=== PATIENT | female | born 1985 | race Caucasian/White ===

== ENCOUNTER 2017-12-22 10:34 | Inpatient (IN) | payer BC ==
[~2017-12-22] VITALS: Ht 162.6 cm; Wt 63.5 kg
[2017-12-22 16:00] VITALS: BP 107/64
[2017-12-22] MEDS ORDERED: Norco 5mg/325mg tab ORAL PRN ×2 (16:06→16:07)
--- NOTE | 2017-12-22 16:36 | Diagnostic Imaging Report ---
Indication: Fell, tripped on glass, shattered glass injury to plantar surface of foot Technique: 3 views left foot Comparison: None Findings: Multiple polygonal foreign bodies, at least 6, are seen projected in the plantar surface soft tissues adjacent to the third metatarsal shaft. No definite underlying bony disruption is evident. No soft tissue gas. On 2 views, one of these fragments demonstrates attenuation characteristic of a metallic density, but this is not confirmed on the oblique view Impression: At least 6 foreign bodies, presumably glass fragments given stated clinical history, seen within the plantar surface of the midfoot, adjacent to the third metatarsal shaft. One of these may be metallic No definite bony destruction or abnormal soft tissue gas Patient's nurse notified of the findings at the time of interpretation
[2017-12-22] MEDS: cefTRIAXone 1 GM in D5W 55 ML IVPB SCH (17:24)
[2017-12-22 19:26] VITALS: BP 95/61
--- NOTE | 2017-12-22 20:06 | History & Physical ---
History and Physical History & Physicial Dictated for int Med Dr De Dios no. [id number] Grupo Perez MD Dec 22, 2017 20:05
[2017-12-23] VITALS (13 sets, daily range): BP systolic 98–130; BP diastolic 59–80
[2017-12-23 06:32] LABS: BASOPHILS % (AUTO) 1.3 % (0.0-2.0); EOSINOPHILS % (AUTO) 3.1 % (0.0-3.0); HEMATOCRIT 36.7 % (37.0-47.0); HEMOGLOBIN 12.4 G/DL (12.0-16.0); LYMPHOCYTES % (AUTO) 21.6 % (20.0-45.0); MEAN CORPUSCULAR VOLUME 94 FL (80-99); NEUTROPHILS % (AUTO) 64.9 % (45.0-75.0); PLATELET COUNT 202 K/UL (150-450); RED BLOOD COUNT 3.89 M/UL (4.20-5.40); RED CELL DISTRIBUTION WIDTH 10.9 % (11.6-14.8); WHITE BLOOD COUNT 7.5 K/UL (4.8-10.8)
[2017-12-23 06:50] LABS: ALANINE AMINOTRANSFERASE 16 U/L (12-78); ALBUMIN 3.6 G/DL (3.4-5.0); ALBUMIN/GLOBULIN RATIO 1.1 (1.0-2.7); ALKALINE PHOSPHATASE 24 U/L (46-116); ANION GAP 5 mmol/L (5-15); ASPARTATE AMINO TRANSFERASE 15 U/L (15-37); BILIRUBIN,TOTAL 0.5 MG/DL (0.2-1.0); BLOOD UREA NITROGEN 12 mg/dL (7-18); CALCIUM 8.7 MG/DL (8.5-10.1); CARBON DIOXIDE 30 MMOL/L (21-32); CHLORIDE 104 MMOL/L (98-107); CREATININE 0.7 MG/DL (0.55-1.30); PHOSPHORUS 3.9 MG/DL (2.5-4.9); POTASSIUM 4.2 MMOL/L (3.5-5.1); SODIUM 139 MMOL/L (136-145)
--- NOTE | 2017-12-23 07:54 | Consultation ---
Consult Note Assessment/Plan A/ Foreign body left foot P/ Plan for surgery today to remove FB's. Patient understands risks, benefits, and post op recovery. Wishes to proceed. Will order labs including preg test Awaiting OR for time today. Cont NPO Full note dictated Thank you Yefri Deal DPM Dec 23, 2017 07:54
--- NOTE | 2017-12-23 11:30 | Consultation ---
DATE OF CONSULTATION: 12/23/2017 CONSULTING PHYSICIAN: Yefri Nichols D.P.M. REQUESTING PHYSICIAN: Osmel De Dios M.D. REASON FOR CONSULTATION: Foreign body in the left foot. HISTORY OF PRESENT ILLNESS: The patient is a 32-year-old female, was admitted to [facility] on December 22, 2017 for foreign body. She states that Friday evening she was in the bathroom with her son. She is drinking a glass of water, she placed it down, and was concerned about her son status, jolted upwards and knocked the glass over and subsequently stepped on the broken shards. She sought emergent care the following day and was admitted due to retained foreign body and pain as well as deep laceration. The patient currently denies any pain, fevers, chills, nausea, vomiting. PAST MEDICAL HISTORY: None. PAST SURGICAL HISTORY: None. ALLERGIES: No known drug allergies. MEDICATIONS: None. FAMILY HISTORY: Noncontributory. SOCIAL HISTORY: The patient lives at home with her and her 3-year-old son. REVIEW OF SYSTEMS: HEENT: The patient denies any headaches, blurred vision, or ringing in the ears. CARDIORESPIRATORY: The patient denies any chest pain or shortness of breath. GENITOURINARY: The patient denies any urgency, frequency, burning upon urination, or hematuria. GASTROINTESTINAL: The patient denies any constipation, diarrhea, or blood in the stool. NEUROLOGIC: The patient admits to numbness in the left 3rd and 4th toes as residual part of the trauma. PHYSICAL EXAMINATION: VITAL SIGNS: Temperature is 97.9, pulse is 66, respiration rate is 15, blood pressure is 98/59, and saturating 99% on room air. EXTREMITIES: Lower extremity physical exam, vascular, palpable pedal pulses noted bilaterally. Feet are equally warm. There is no edema or cyanosis noted. Capillary filling time is instantaneous to all toes of bilateral feet. DERMATOLOGIC: There is a deep laceration noted at the central arch area of the left foot. No active bleeding is noted. There was hematoma noted in the wound. No foreign bodies are visible. No signs of active infection are noted. No pain upon palpation of the area, just sensitivity. MUSCULOSKELETAL: No gross deformities noted. NEUROLOGIC: Soft. Sensation is diminished in the left third toe. LABORATORY DATA: White blood cell count is 7.5, hemoglobin and hematocrit is 12.4 and 36.7, and platelet count is 202. Chemistry panel is completely unremarkable. X-rays taken on this admission show multiple shards of broken glass in the left foot. ASSESSMENT: Foreign bodies, left foot. Laceration left foot PLAN: 1. The patient was advised of her current condition and she understands and agrees to removal of foreign body surgery today. The patient advised of the risks, benefits, and possible complications, including infection, bleeding, possible necessity for further procedures. The patient understands recovery times including three weeks of nonweightbearing, postoperative dressing changes, and need for rest at home. 2. OR was contacted and the case is hanging for today after scheduled cases. 3. We will order test to assess for status. Thank you for the courtesy of this consultation, Dr. De Dios. Yefir Nichols D.P.M. DR: EMMANUEL JOB#: [id number] CC: JEFE
--- NOTE | 2017-12-23 14:30 | Consultation ---
History of Present Illness General Date patient seen: Dec 23, 2017 Present Illness HPI 32 year old femalw without any PMHx stepped on some broken glass at home and was taken to [facility]. She was found to have pieces of glass in her foot and transferred to [facility] for surgical evaluation. pt is asymptomatic now. was seen by Sheet Metal Work Furnace Installer and awaiting surgery now. Allergies: Coded Allergies: No Known Allergies (Unverified , 12/22/17) Patient History Healthcare decision maker Resuscitation status Full Code Advanced Directive on File Review of Systems All Other Systems: negative except mentioned in HPI Physical Exam General Appearance: WD/WN Lines, tubes and drains: peripheral, central line HEENT: normocephalic, anicteric Neck: non-tender Respiratory/Chest: chest wall non-tender, lungs clear Cardiovascular/Chest: normal peripheral pulses, normal rate Abdomen: normal bowel sounds Genitourinary/Rectal: normal genital exam Extremities: normal range of motion Neurologic: patternmaker metal II-XII grossly normal Last 24 Hour Vital Signs Date Time Temp Pulse Resp B/P (MAP) Pulse Ox O2 Delivery O2 Flow Rate FiO2 12/23/17 13:04 99.3 12/23/17 11:53 99.3 12/23/17 11:46 99.3 76 19 108/74 (85) 98 99.3 12/23/17 09:00 Room Air 12/23/17 08:26 98.4 77 18 118/80 (93) 97 98.4 12/23/17 08:00 98.4 77 18 118/80 (93) 97 98.4 12/23/17 04:00 97.9 66 15 98/59 (72) 99 97.9 12/23/17 00:11 97.7 68 16 103/68 (80) 99 97.7 12/22/17 21:00 Room Air 12/22/17 19:26 98.1 69 18 95/61 (72) 97 98.1 12/22/17 16:00 98.9 84 19 107/64 (78) 97 98.9 12/22/17 15:05 Room Air Intake and Output 12/22/17 12/23/17 19:00 07:00 Intake Total 455 ml Balance 455 ml Intake IV Total 55 ml Other 400 ml # Voids 1 # Bowel Movements 1 Laboratory Tests Test 8/21/18 05:20 12/23/17 08:00 White Blood Count 7.5 K/UL (4.8-10.8) Red Blood Count 3.89 M/UL (4.20-5.40) L Hemoglobin 12.4 G/DL (12.0-16.0) Hematocrit 36.7 % (37.0-47.0) L Mean Corpuscular Volume 94 FL (80-99) Mean Corpuscular Hemoglobin 31.8 PG (27.0-31.0) H Mean Corpuscular Hemoglobin Concent 33.7 G/DL (32.0-36.0) Red Cell Distribution Width 10.9 % (11.6-14.8) L Platelet Count 202 K/UL (150-450) Mean Platelet Volume 9.3 FL (6.5-10.1) Neutrophils (%) (Auto) 64.9 % (45.0-75.0) Lymphocytes (%) (Auto) 21.6 % (20.0-45.0) Monocytes (%) (Auto) 9.0 % (1.0-10.0) Eosinophils (%) (Auto) 3.1 % (0.0-3.0) H Basophils (%) (Auto) 1.3 % (0.0-2.0) Sodium Level 139 MMOL/L (136-145) Potassium Level 4.2 MMOL/L (3.5-5.1) Chloride Level 104 MMOL/L (98-107) Carbon Dioxide Level 30 MMOL/L (21-32) Anion Gap 5 mmol/L (5-15) Blood Urea Nitrogen 12 mg/dL (7-18) Creatinine 0.7 MG/DL (0.55-1.30) Estimat Glomerular Filtration Rate > 60 mL/min (>60) Glucose Level 104 MG/DL (74-106) Calcium Level 8.7 MG/DL (8.5-10.1) Phosphorus Level 3.9 MG/DL (2.5-4.9) Magnesium Level 1.9 MG/DL (1.8-2.4) Total Bilirubin 0.5 MG/DL (0.2-1.0) Aspartate Amino Transf (AST/SGOT) 15 U/L (15-37) Alanine Aminotransferase (ALT/SGPT) 16 U/L (12-78) Alkaline Phosphatase 24 U/L (46-116) L Total Protein 6.8 G/DL (6.4-8.2) Albumin 3.6 G/DL (3.4-5.0) Globulin 3.2 g/dL Albumin/Globulin Ratio 1.1 (1.0-2.7) Human Chorionic Gonadotropin, Qual Negative (NEGATIVE) Height (Feet): 5 Height (Inches): 4.00 Weight (Pounds): 140 Medications Current Medications Medications (Trade) Dose Ordered Sig/Veronika Route PRN Reason Start Time Stop Time Status Last Admin Dose Admin Acetaminophen (Tylenol) 650 mg Q6H PRN ORAL Mild Pain/Temp > 100.5 12/22/17 16:06 01/21/18 16:05 12/23/17 11:53 Acetaminophen/ Hydrocodone Bitart ([place] 5/325) 1 tab Q6H PRN ORAL For severe pain 12/22/17 16:07 12/29/17 16:05 Ceftriaxone Sodium 1 gm/ Dextrose 55 ml @ 110 mls/hr Q24H IVPB 12/22/17 17:00 12/29/17 16:59 12/22/17 17:24 Assessment/Plan Problem List: (1) Foot laceration ICD Codes: S91.319A - Laceration without foreign body, unspecified foot, initial encounter SNOMED: [id number] Assessment/Plan Podiatry f/u wound care pain management symptomatic treatment. Chen Doll MD Dec 23, 2017 14:30
[2017-12-23] MEDS ORDERED: Hydromorphone 0.5mg/0.5ml inj IVP PRN (14:45)
[2017-12-23] MEDS: cefTRIAXone 1 GM in D5W 55 ML IVPB SCH (17:12)
--- NOTE | 2017-12-23 19:13 | Internal Med Progress Note ---
Subjective Date of Service: Dec 23, 2017 Physician Name Grupo Perez Attending Physician Osmel De Dios MD Current Medications Medications (Trade) Dose Ordered Sig/Veronika Route PRN Reason Start Time Stop Time Status Last Admin Dose Admin Acetaminophen (Tylenol) 650 mg Q6H PRN ORAL Mild Pain/Temp > 100.5 12/22/17 16:06 01/21/18 16:05 12/23/17 11:53 Acetaminophen/ Hydrocodone Bitart ([place] 5/325) 1 tab Q6H PRN ORAL For severe pain 12/22/17 16:07 12/29/17 16:05 Ceftriaxone Sodium 1 gm/ Dextrose 55 ml @ 110 mls/hr Q24H IVPB 12/22/17 17:00 12/29/17 16:59 12/23/17 17:12 Hydromorphone HCl (Dilaudid) 0.5 mg Q4H PRN IVP For Pain 9-10 12/23/17 14:45 12/30/17 14:44 Temazepam (Restoril) 15 mg HSPRN PRN ORAL Insomnia 12/23/17 14:45 12/30/17 14:44 Allergies: Coded Allergies: No Known Allergies (Unverified , 12/22/17) ROS Limited/Unobtainable: No Constitutional: Reports: no symptoms HEENT: Reports: no symptoms Cardiovascular: Reports: no symptoms Respiratory: Reports: no symptoms Gastrointestinal/Abdominal: Reports: no symptoms Genitourinary: Reports: no symptoms Subjective 32 YO F admitted with laceration and glass shards in left foot. Await surgical extraction and laceration repair under anesthesia today. Cover for Int Med Dr De Dios Objective Last Vital Signs Date Time Temp Pulse Resp B/P (MAP) Pulse Ox O2 Delivery O2 Flow Rate FiO2 12/23/17 16:03 98.9 91 19 121/77 (92) 99 98.9 12/23/17 09:00 Room Air General Appearance: WD/WN, no apparent distress, alert EENT: PERRL/EOMI, normal ENT inspection Neck: non-tender, normal alignment, supple, normal inspection Cardiovascular: normal peripheral pulses, normal rate, regular rhythm, no gallop/murmur, no JVD Respiratory/Chest: chest wall non-tender, lungs clear, normal breath sounds, no respiratory distress, no accessory muscle use Abdomen: normal bowel sounds, non tender, soft, no organomegaly, no mass Extremities: normal range of motion, non-tender Neurologic: retail business development manager II-XII grossly normal, no motor/sensory deficits Skin: normal pigmentation, warm/dry Laboratory Tests Test 12/23/17 05:20 12/23/17 08:00 White Blood Count 7.5 K/UL (4.8-10.8) Red Blood Count 3.89 M/UL (4.20-5.40) L Hemoglobin 12.4 G/DL (12.0-16.0) Hematocrit 36.7 % (37.0-47.0) L Mean Corpuscular Volume 94 FL (80-99) Mean Corpuscular Hemoglobin 31.8 PG (27.0-31.0) H Mean Corpuscular Hemoglobin Concent 33.7 G/DL (32.0-36.0) Red Cell Distribution Width 10.9 % (11.6-14.8) L Platelet Count 202 K/UL (150-450) Mean Platelet Volume 9.3 FL (6.5-10.1) Neutrophils (%) (Auto) 64.9 % (45.0-75.0) Lymphocytes (%) (Auto) 21.6 % (20.0-45.0) Monocytes (%) (Auto) 9.0 % (1.0-10.0) Eosinophils (%) (Auto) 3.1 % (0.0-3.0) H Basophils (%) (Auto) 1.3 % (0.0-2.0) Sodium Level 139 MMOL/L (136-145) Potassium Level 4.2 MMOL/L (3.5-5.1) Chloride Level 104 MMOL/L (98-107) Carbon Dioxide Level 30 MMOL/L (21-32) Anion Gap 5 mmol/L (5-15) Blood Urea Nitrogen 12 mg/dL (7-18) Creatinine 0.7 MG/DL (0.55-1.30) Estimat Glomerular Filtration Rate > 60 mL/min (>60) Glucose Level 104 MG/DL (74-106) Calcium Level 8.7 MG/DL (8.5-10.1) Phosphorus Level 3.9 MG/DL (2.5-4.9) Magnesium Level 1.9 MG/DL (1.8-2.4) Total Bilirubin 0.5 MG/DL (0.2-1.0) Aspartate Amino Transf (AST/SGOT) 15 U/L (15-37) Alanine Aminotransferase (ALT/SGPT) 16 U/L (12-78) Alkaline Phosphatase 24 U/L (46-116) L Total Protein 6.8 G/DL (6.4-8.2) Albumin 3.6 G/DL (3.4-5.0) Globulin 3.2 g/dL Albumin/Globulin Ratio 1.1 (1.0-2.7) Human Chorionic Gonadotropin, Qual Negative (NEGATIVE) Intake and Output 12/22/17 12/23/17 19:00 07:00 Intake Total 455 ml Balance 455 ml Intake IV Total 55 ml Other 400 ml # Voids 1 # Bowel Movements 1 Assessment/Plan Problem List: (1) Laceration of left foot Assessment & Plan: Surgical repair today by podiatry - see note. (2) Foreign body in left foot Assessment & Plan: Await surgical removal under anesthesia today. See podiatry note. Status: not improved Grupo Perez MD Dec 23, 2017 19:13
--- NOTE | 2017-12-23 20:04 | Pre-Procedure Note/Attestation ---
Pre-Procedure Note/Attestation Complete Prior to Procedure Planned Procedure: left Procedure Narrative: Removal of foreign bodies left foot Indications for Procedure Pre-Operative Diagnosis: Foreign bodies left foot Attestation I attest that I discussed the nature of the procedure; its benefits; risks and complications; and alternatives (and the risks and benefits of such alternatives ), prior to the procedure, with the patient (or the patient's legal contact representative). I attest that, if there was a reasonable possibility of needing a blood transfusion, the patient (or the patient's legal contact representative) was given the [facility] standardized written summary, pursuant to the [place] Blood Safety Act ([place] Health and Safety Code # 1645, as amended). I attest that I re-evaluated the patient just prior to the surgery and that there has been no change in the patient's H&P, except as documented below: Yefri Nichols DPM Dec 23, 2017 20:04
[2017-12-23] MEDS ORDERED: Bupivacaine 0.5% Inj 30 ml vial INJ ONE (20:13)
[2017-12-23] MEDS ORDERED: Bacitracin Oint 15gm Tube TOPIC ONE (20:13)
[2017-12-23] MEDS ORDERED: Lidocaine 1% 10mg/ml/Epi 0.005mg/ml 30ml vial INJ ONE (20:13)
[2017-12-23] MEDS ORDERED: Bacitracin 50000 Units Vial ONE (20:14)
[2017-12-23] MEDS ORDERED: NeoSporin Gu Irrig 1ml Amp IRRIG ONE (20:14)
[2017-12-23] MEDS ORDERED: fentaNYL 100 mcg/2 mL IV ONE (20:36)
[2017-12-23] MEDS ORDERED: Midazolam 2mg/2ml Inj ONE (20:36)
[2017-12-23] MEDS ORDERED: Propofol 200mg/20ml IV ONE (20:38)
[2017-12-23] MEDS ORDERED: LR 1000ml 1,000 ML IVLG SCH (21:13)
--- NOTE | 2017-12-23 21:13 | Anethesia Preoperative Eval ---
Anesthesia Pre-op PMH/ROS General Date of Evaluation: Dec 23, 2017 Time of Evaluation: 20:32 Anesthesiologist: Serena ASA Score: ASA 2 Mallampati Score Class I : Soft palate, uvula, fauces, pillars visible Class II: Soft palate, uvula, fauces visible Class III: Soft palate, base of uvula visible Class IV: Only hard plate visible Mallampati Classification: Class II Surgeon: Jerrod Diagnosis: L foot wound Surgical Procedure: Revision of wound with removal of foreighn bodies Anesthesia History: none Family History: no anesthesia problems Allergies: Coded Allergies: No Known Allergies (Unverified , 12/22/17) Past Medical History Cardiovascular: Denies: HTN, CAD, [place], valve dz, arrhythmia, other Pulmonary: Denies: asthma, COPD, ROB, other Gastrointestinal/Genitourinary: Denies: GERD, CRI, ESRD, other Neurologic/Psychiatric: Denies: dementia, CVA, depression/anxiety, TIA, other Endocrine: Denies: DM, hypothyroidism, steroids, other HEENT: Denies: cataract (L), cataract (R), glaucoma, ALGAACIQ (L), ALGAACIQ (R), other Hematology/Immune: Denies: anemia, DVT, bleeding disorder, other Musculoskeletal/Integumentary: Denies: OA, RA, DJD, DDD, edema, other PMH Narrative: as above . Admitted for severe laceration of L foot PSxH Narrative: none Anesthesia Pre-op Phys. Exam Physician Exam Last Vital Signs Date Time Temp Pulse Resp B/P (MAP) Pulse Ox O2 Delivery O2 Flow Rate FiO2 12/23/17 20:00 99.1 82 16 130/65 (86) 98 99.1 12/23/17 09:00 Room Air Constitutional: NAD Neurologic: CN 2-12 intact Cardiovascular: RRR, no M/R/G Respiratory: CTA Gastrointestinal: S/NT/ND Airway Exam Mallampati Score: Class II MO: full Neck: flexible ROM: full Teeth: intact Dentures: no upper, no lower Anesthesia Pre-op A/P Labs Hematology Test 12/23/17 05:20 White Blood Count 7.5 K/UL (4.8-10.8) Red Blood Count 3.89 M/UL (4.20-5.40) L Hemoglobin 12.4 G/DL (12.0-16.0) Hematocrit 36.7 % (37.0-47.0) L Mean Corpuscular Volume 94 FL (80-99) Mean Corpuscular Hemoglobin 31.8 PG (27.0-31.0) H Mean Corpuscular Hemoglobin Concent 33.7 G/DL (32.0-36.0) Red Cell Distribution Width 10.9 % (11.6-14.8) L Platelet Count 202 K/UL (150-450) Mean Platelet Volume 9.3 FL (6.5-10.1) Neutrophils (%) (Auto) 64.9 % (45.0-75.0) Lymphocytes (%) (Auto) 21.6 % (20.0-45.0) Monocytes (%) (Auto) 9.0 % (1.0-10.0) Eosinophils (%) (Auto) 3.1 % (0.0-3.0) H Basophils (%) (Auto) 1.3 % (0.0-2.0) Chemistry Test 12/23/17 05:20 12/23/17 08:00 Sodium Level 139 MMOL/L (136-145) Potassium Level 4.2 MMOL/L (3.5-5.1) Chloride Level 104 MMOL/L (98-107) Carbon Dioxide Level 30 MMOL/L (21-32) Anion Gap 5 mmol/L (5-15) Blood Urea Nitrogen 12 mg/dL (7-18) Creatinine 0.7 MG/DL (0.55-1.30) Estimat Glomerular Filtration Rate > 60 mL/min (>60) Glucose Level 104 MG/DL (74-106) Calcium Level 8.7 MG/DL (8.5-10.1) Phosphorus Level 3.9 MG/DL (2.5-4.9) Magnesium Level 1.9 MG/DL (1.8-2.4) Total Bilirubin 0.5 MG/DL (0.2-1.0) Aspartate Amino Transf (AST/SGOT) 15 U/L (15-37) Alanine Aminotransferase (ALT/SGPT) 16 U/L (12-78) Alkaline Phosphatase 24 U/L (46-116) L Total Protein 6.8 G/DL (6.4-8.2) Albumin 3.6 G/DL (3.4-5.0) Globulin 3.2 g/dL Albumin/Globulin Ratio 1.1 (1.0-2.7) Human Chorionic Gonadotropin, Qual Negative (NEGATIVE) Serum Test Test 12/23/17 08:00 Human Chorionic Gonadotropin, Qual Negative (NEGATIVE) Risk Assessment & Plan Assessment: asa 2 Plan: MAC Status Change Before Surgery: No Pre-Antibiotics Drug: asn scheduled David Lyons MD Dec 23, 2017 21:13
[2017-12-23] MEDS ORDERED: Meperidine 50mg/ml Inj(FOR RIGORS ONLY) IV PRN (21:15)
[2017-12-23] MEDS ORDERED: DiphenhydrAMINE 50mg/ml Inj IVP PRN (21:15)
[2017-12-23] MEDS ORDERED: Ketorolac 30mg Inj IV PRN (21:15)
[2017-12-23] MEDS ORDERED: Betadine 4oz Bottle TOPIC ONE (22:09)
--- NOTE | 2017-12-23 22:21 | Brief Operative Note ---
Immediate Post Operative Note Operative Note Pre-op Diagnosis: Foreign bodies left foot Procedure: Removal of foreign bodies left foot Repair of laceration left foot Post-op Diagnosis: same as pre-op Surgeon: Yefri Nichols DPM Riverboat Captain: none Additional Surgeons: none Anesthesiologist: Dr Lyons Anesthesia: local, moderate sedation Specimen: yes - several pieces of glass Complications: none Condition: stable Fluids: per anesthesia Estimated Blood Loss: minimal - 10 cc Drains: none Tourniquet time: 60 - min Implant(s) used?: No Yefri Nichols DPM Dec 23, 2017 22:21
--- NOTE | 2017-12-23 22:25 | Immediate Post-Op Evaluation ---
Immediate Post-Op Evalulation Immediate Post-Op Evalulation Procedure: Revision of L foot wound with removal of foreign bodies Date of Evaluation: Dec 23, 2017 Time of Evaluation: 22:23 IV Fluids: 600 Blood Products: none Estimated Blood Loss: min Urinary Output: none Blood Pressure Systolic: 109 Blood Pressure Diastolic: 67 Pulse Rate: 85 Respiratory Rate: 20 O2 Sat by Pulse Oximetry: 99 Temperature (Fahrenheit): 98.2 Pain Score (1-10): 2 Nausea: No Vomiting: No Complications none Patient Status: awake, patent, none Hydration Status: adequate David Lyons MD Dec 23, 2017 22:25
[2017-12-24] VITALS: BP 108/61
--- NOTE | 2017-12-24 03:32 | History and Physical Report ---
DATE OF ADMISSION: 12/22/2017 CHIEF COMPLAINT: The patient is a 32-year-old white female who presents with chief complaint of laceration and foreign body of the left foot. HISTORY OF PRESENT ILLNESS: The patient was at home with her son in the bathroom. A glass fell and shattered on the floor. The patient has stepped on the shattered glass. The patient presented to [place] emergency room. The glass shard was too deep to remove without anesthesia. The patient is admitted with chief complaint of laceration of the left foot as well as foreign object in the left foot. PAST MEDICAL HISTORY: Noncontributory. PAST SURGICAL HISTORY: None. CURRENT MEDICATIONS: None. ALLERGIES: No known drug allergies. SOCIAL HISTORY: The patient is and lives at home with her and son. The patient denies tobacco or alcohol use. REVIEW OF SYSTEMS: CONSTITUTIONAL: The patient denies weight loss or weight gain. The patient denies fever or chills. HEENT: The patient denies ear or throat pain. The patient denies headache. CARDIOVASCULAR: The patient denies palpitations or chest pain. CHEST: The patient denies wheeze or shortness of breath. ABDOMEN: The patient denies nausea, vomiting, diarrhea, or constipation. GENITOURINARY: The patient denies dysuria or increased frequency of urination. NEUROMUSCULAR: The patient denies seizures or generalized weakness. PHYSICAL EXAMINATION: GENERAL: The patient is a well-developed and well-nourished white female, in no apparent distress. VITAL SIGNS: Temperature 98.4 degrees, respirations 18, pulse 77, and blood pressure 118/80. HEENT: Eyes, pupils equal and responsive to light and accommodation. Extraocular movements are intact. NECK: Supple without lymphadenopathy. CHEST: Lungs are clear to auscultation bilaterally without wheezes or rales. CARDIOVASCULAR: Regular rate. S1 and S2 are normal without murmurs, rubs, or gallops. ABDOMEN: Soft, nontender, and nondistended. Positive bowel sounds. No evidence of hepatosplenomegaly. Currently, no rebound or guarding noted. EXTREMITIES: Negative for clubbing, cyanosis, or edema. RECTAL: Refused. GENITAL: Refused. NEUROLOGIC: Cranial nerves II through XII are grossly intact without focal deficits. Motor strength is 5/5 bilaterally. Deep tendon reflexes are 2+, plantar. Of note, the left foot is bandaged, and I am unable to examine the wound. LABORATORY AND DIAGNOSTIC DATA: WBC 7.5, hemoglobin 12.4, hematocrit 36.7, and platelets 202,000. Sodium 139, potassium 4.2, chloride 104, CO2 30, BUN 12, creatinine 0.7 and glucose 104. An x-ray of the left foot showed 6 foreign bodies adjacent to the third metatarsal shaft. ASSESSMENT: This is a 32-year-old white female: 1. Laceration of the left foot. 2. Foreign object in the left foot. TREATMENT: A Podiatry consultation has been obtained by Dr. Nichols. The patient may require surgical removal of the foreign body of the left foot. We will follow recommendations of Podiatry. Grupo Perez M.D. DR: TY JOB#: [id number] CC:
[2017-12-24 04:00] VITALS: BP 101/66
--- NOTE | 2017-12-24 07:32 | Operative Note - Dictated ---
DATE OF OPERATION: 12/23/2017 SURGEON: Yefri Nichols DPM. DOUGH MIXER OPERATOR SURGEON: None. ANESTHESIOLOGIST: David Lyons M.D. TYPE OF ANESTHESIA: Sedation with approximately 10 mL of 0.5% plain Marcaine and an ankle block. PREOPERATIVE DIAGNOSES: 1. Foreign body, left foot. 2. Laceration, left foot. POSTOPERATIVE DIAGNOSES: 1. Foreign body, left foot. 2. Laceration, left foot. PROCEDURE PERFORMED: 1. Removal of foreign bodies, left foot. 2. Repair of laceration approximately 5 cm in length. COMPLICATIONS: None. ESTIMATED BLOOD LOSS: 10 mL. ANTIBIOTICS: Rocephin given on the floor. DESCRIPTION OF PROCEDURE: The patient was transported to the operating room and placed on the operating table in supine position. Time-out was taken. Anesthesiologist then began sedation. Left ankle was blocked utilizing approximately 10 mL of 0.5% plain Marcaine and an ankle block. Padding was applied to the left ankle and pneumatic ankle tourniquet was placed over it. Left foot was scrubbed, prepped, and draped in usual aseptic manner. Left foot was elevated to exsanguinate the foot. Tourniquet was inflated to a pressure of 225 mmHg. After anesthesia check, exploration of the lacerated wound was performed under fluoroscopy guidance. Approximately, 6 pieces of glass were extracted. Final fluoroscopy indicated no fragment remnants in the left foot. Wound was copiously flushed. Deep musculature was coapted utilizing 3-0 Vicryl, subcutaneous with 3-0 Vicryl, and skin with 2-0 nylon stitch. Compressive dressings were applied. The tourniquet was deflated at approximately 63 minutes and immediate hyperemia was noted through toes #1 through #5 of the left foot. The patient tolerated the procedure and anesthesia well, and was transferred to recovery room in stable condition. The patient will return back to the floor with orders to resume diet and preoperative medications. Dilaudid and [place] have been previously ordered and will be resumed for postoperative pain management. Orders for reinforcement of dressings as needed, nonweightbearing of left foot, also to provide crutches to the patient to allow for nonweightbearing, and PT to gait-train with crutches. We will follow this patient postoperatively. Yefri Nichols D.P.M. DR: Monik JOB#: [id number] CC:
[2017-12-24 08:00] VITALS: BP 107/69
--- NOTE | 2017-12-24 08:16 | 48 Hour Post Anesthesia Eval ---
Post Anesthesia Evaluation Procedure: Revision of L foot wound with removal of foreign bodies Date of Evaluation: Dec 24, 2017 Time of Evaluation: 08:15 Blood Pressure Systolic: 104 0: 56 Pulse Rate: 68 Respiratory Rate: 20 Temperature (Fahrenheit): 97.6 O2 Sat by Pulse Oximetry: 98 Airway: patent Nausea: No Vomiting: No Pain Intensity: 2 Hydration Status: adequate Cardiopulmonary Status: stable Mental Status/LOC: patient returned to baseline Follow-up Care/Observations: n/a Post-Anesthesia Complications: none Follow-up care needed: ready to discharge David Lyons MD Dec 24, 2017 08:16
[2017-12-24 08:36] LABS: BASOPHILS % (AUTO) 1.2 % (0.0-2.0); EOSINOPHILS % (AUTO) 3.8 % (0.0-3.0); HEMOGLOBIN 12.7 G/DL (12.0-16.0); LYMPHOCYTES % (AUTO) 34.5 % (20.0-45.0); MEAN CORPUSCULAR VOLUME 93 FL (80-99); MONOCYTES % (AUTO) 7.6 % (1.0-10.0); NEUTROPHILS % (AUTO) 52.8 % (45.0-75.0); PLATELET COUNT 222 K/UL (150-450); RED CELL DISTRIBUTION WIDTH 10.5 % (11.6-14.8); WHITE BLOOD COUNT 6.7 K/UL (4.8-10.8)
[2017-12-24 08:57] LABS: ALANINE AMINOTRANSFERASE 17 U/L (12-78); ALBUMIN 3.7 G/DL (3.4-5.0); ALKALINE PHOSPHATASE 28 U/L (46-116); ANION GAP 10 mmol/L (5-15); ASPARTATE AMINO TRANSFERASE 14 U/L (15-37); BILIRUBIN,TOTAL 0.4 MG/DL (0.2-1.0); BLOOD UREA NITROGEN 12 mg/dL (7-18); CARBON DIOXIDE 26 MMOL/L (21-32); CHLORIDE 103 MMOL/L (98-107); CREATININE 0.6 MG/DL (0.55-1.30); PHOSPHORUS 4.2 MG/DL (2.5-4.9); POTASSIUM 3.9 MMOL/L (3.5-5.1); SODIUM 139 MMOL/L (136-145)
[2017-12-24] MEDS ORDERED: Norco 5mg/325mg tab ORAL SCH (09:15)
--- NOTE | 2017-12-24 09:36 | Internal Med Progress Note ---
Subjective Date of Service: Dec 24, 2017 Physician Name Grupo Perez Attending Physician Osmel De Dios MD Current Medications Medications (Trade) Dose Ordered Sig/Veronika Route PRN Reason Start Time Stop Time Status Last Admin Dose Admin Acetaminophen (Tylenol) 650 mg Q6H PRN ORAL Mild Pain/Temp > 100.5 12/22/17 16:06 01/21/18 16:05 12/23/17 11:53 Acetaminophen/ Hydrocodone Bitart ([place] 5/325) 1 tab ONCE ORAL 12/24/17 09:15 12/24/17 10:15 12/24/17 09:31 Acetaminophen/ Hydrocodone Bitart ([place] 5/325) 1 tab Q6H PRN ORAL For severe pain 12/22/17 16:07 12/29/17 16:05 12/24/17 04:40 Ceftriaxone Sodium 1 gm/ Dextrose 55 ml @ 110 mls/hr Q24H IVPB 12/22/17 17:00 12/29/17 16:59 12/23/17 17:12 Hydromorphone HCl (Dilaudid) 0.5 mg Q4H PRN IVP For Pain 9-10 12/23/17 14:45 12/30/17 14:44 Temazepam (Restoril) 15 mg HSPRN PRN ORAL Insomnia 12/23/17 14:45 12/30/17 14:44 Allergies: Coded Allergies: No Known Allergies (Unverified , 12/22/17) ROS Limited/Unobtainable: No Subjective 32 YO F admitted with laceration and glass shards in left foot. S/P surgical extraction and laceration repair under anesthesia 12/23/17. Cover for Int Med Dr De Dios Objective Last Vital Signs Date Time Temp Pulse Resp B/P (MAP) Pulse Ox O2 Delivery O2 Flow Rate FiO2 12/24/17 08:16 207.7 68 20 98 12/24/17 08:00 107/69 (82) 12/23/17 22:54 Room Air Laboratory Tests Test 12/24/17 08:00 White Blood Count 6.7 K/UL (4.8-10.8) Red Blood Count 4.00 M/UL (4.20-5.40) L Hemoglobin 12.7 G/DL (12.0-16.0) Hematocrit 37.0 % (37.0-47.0) Mean Corpuscular Volume 93 FL (80-99) Mean Corpuscular Hemoglobin 31.8 PG (27.0-31.0) H Mean Corpuscular Hemoglobin Concent 34.4 G/DL (32.0-36.0) Red Cell Distribution Width 10.5 % (11.6-14.8) L Platelet Count 222 K/UL (150-450) Mean Platelet Volume 9.0 FL (6.5-10.1) Neutrophils (%) (Auto) 52.8 % (45.0-75.0) Lymphocytes (%) (Auto) 34.5 % (20.0-45.0) Monocytes (%) (Auto) 7.6 % (1.0-10.0) Eosinophils (%) (Auto) 3.8 % (0.0-3.0) H Basophils (%) (Auto) 1.2 % (0.0-2.0) Erythrocyte Sedimentation Rate Pending Sodium Level 139 MMOL/L (136-145) Potassium Level 3.9 MMOL/L (3.5-5.1) Chloride Level 103 MMOL/L (98-107) Carbon Dioxide Level 26 MMOL/L (21-32) Anion Gap 10 mmol/L (5-15) Blood Urea Nitrogen 12 mg/dL (7-18) Creatinine 0.6 MG/DL (0.55-1.30) Estimat Glomerular Filtration Rate > 60 mL/min (>60) Glucose Level 92 MG/DL (74-106) Calcium Level 9.0 MG/DL (8.5-10.1) Phosphorus Level 4.2 MG/DL (2.5-4.9) Magnesium Level 2.0 MG/DL (1.8-2.4) Total Bilirubin 0.4 MG/DL (0.2-1.0) Aspartate Amino Transf (AST/SGOT) 14 U/L (15-37) L Alanine Aminotransferase (ALT/SGPT) 17 U/L (12-78) Alkaline Phosphatase 28 U/L (46-116) L C-Reactive Protein, Quantitative 1.4 mg/dL (0.00-0.90) H Total Protein 7.3 G/DL (6.4-8.2) Albumin 3.7 G/DL (3.4-5.0) Globulin 3.6 g/dL Albumin/Globulin Ratio 1.0 (1.0-2.7) Intake and Output 12/23/17 12/24/17 19:00 07:00 Intake Total 530 ml Output Total 10 ml Balance 520 ml Intake Oral 480 ml IV Total 50 ml Output Estimated Blood Loss 10 ml # Voids 6 2 # Bowel Movements 1 Objective General Appearance: WD/WN, no apparent distress, alert EENT: PERRL/EOMI, normal ENT inspection Neck: non-tender, normal alignment, supple, normal inspection Cardiovascular: normal peripheral pulses, normal rate, regular rhythm, no gallop/murmur, no JVD Respiratory/Chest: chest wall non-tender, lungs clear, normal breath sounds, no respiratory distress, no accessory muscle use Abdomen: normal bowel sounds, non tender, soft, no organomegaly, no mass Extremities: left foot dressing clean and dry; normal range of motion, non- tender Neurologic: manager msw II-XII grossly normal, no motor/sensory deficits Skin: normal pigmentation, warm/dry Assessment/Plan Problem List: (1) Laceration of left foot Assessment & Plan: s/P Surgical repair 12/23/17 by podiatry - see note. (2) Foreign body in left foot Assessment & Plan: S/P surgical removal 6 glass fragments under anesthesia 12/23. See podiatry note. Status: progressing Assessment/Plan Discharge planning Grupo Perez MD Dec 24, 2017 09:36
--- NOTE | 2017-12-24 11:44 | Diagnostic Imaging Report ---
Indication: Pain, foreign bodies, intraoperative imaging Technique: Intraoperative images Comparison: 12/22/2017 Findings: Intraoperative images are less clear than preoperative radiographs, show apparent removal of previously demonstrated foreign bodies. Impression: Intraoperative imaging, as described
[2017-12-24 12:00] VITALS: BP 116/79
--- NOTE | 2017-12-24 12:02 | Pulmonology Progress Note ---
Assessment/Plan Problems: (1) Foot laceration (2) Foreign body in left foot Assessment/Plan post op care f/u by podiatry symptomatic treatment Subjective ROS Limited/Unobtainable: No Constitutional: Reports: no symptoms HEENT: Repors: no symptoms Respiratory: Reports: no symptoms Allergies: Coded Allergies: No Known Allergies (Unverified , 12/22/17) Objective Last 24 Hour Vital Signs Date Time Temp Pulse Resp B/P (MAP) Pulse Ox O2 Delivery O2 Flow Rate FiO2 12/24/17 11:12 97.6 12/24/17 09:00 Room Air 12/24/17 08:16 207.7 68 20 98 12/24/17 08:00 98.7 73 20 107/69 (82) 97 98.7 12/24/17 04:00 98.8 68 19 101/66 (78) 99 98.8 12/24/17 00:00 98.6 64 18 108/61 (77) 99 98.6 12/23/17 22:54 61 15 100/62 98 Room Air 12/23/17 22:46 97.6 62 18 112/69 99 Room Air 97.6 12/23/17 22:35 60 14 99/68 100 Room Air 12/23/17 22:30 Room Air 12/23/17 22:30 63 15 109/67 99 Room Air 12/23/17 22:25 208.8 85 20 99 12/23/17 22:20 63 15 109/67 99 Room Air 12/23/17 22:13 98.2 69 20 112/69 98 Room Air 98.2 12/23/17 20:00 99.1 82 16 130/65 (86) 98 99.1 12/23/17 16:03 98.9 91 19 121/77 (92) 99 98.9 12/23/17 13:04 99.3 Intake and Output 12/23/17 12/24/17 19:00 07:00 Intake Total 530 ml Output Total 10 ml Balance 520 ml Intake Oral 480 ml IV Total 50 ml Output Estimated Blood Loss 10 ml # Voids 6 2 # Bowel Movements 1 General Appearance: WD/WN HEENT: normocephalic, anicteric Respiratory/Chest: chest wall non-tender, lungs clear Breasts: no masses Cardiovascular: normal peripheral pulses Abdomen: soft, non tender, no organomegaly Genitourinary: normal external genitalia Skin: no rash Laboratory Tests 12/24/17 08:00: White Blood Count 6.7, Red Blood Count 4.00L, Hemoglobin 12.7, Hematocrit 37.0, Mean Corpuscular Volume 93, Mean Corpuscular Hemoglobin 31.8H, Mean Corpuscular Hemoglobin Concent 34.4, Red Cell Distribution Width 10.5L, Platelet Count 222, Mean Platelet Volume 9.0, Neutrophils (%) (Auto) 52.8, Lymphocytes (%) (Auto) 34.5, Monocytes (%) (Auto) 7.6, Eosinophils (%) (Auto) 3.8H, Basophils (%) (Auto ) 1.2, Erythrocyte Sedimentation Rate 30H, Sodium Level 139, Potassium Level 3.9 , Chloride Level 103, Carbon Dioxide Level 26, Anion Gap 10, Blood Urea Nitrogen 12, Creatinine 0.6, Estimat Glomerular Filtration Rate > 60, Glucose Level 92, Calcium Level 9.0, Phosphorus Level 4.2, Magnesium Level 2.0, Total Bilirubin 0.4, Aspartate Amino Transf (AST/SGOT) 14L, Alanine Aminotransferase ( ALT/SGPT) 17, Alkaline Phosphatase 28L, C-Reactive Protein, Quantitative 1.4H, Total Protein 7.3, Albumin 3.7, Globulin 3.6, Albumin/Globulin Ratio 1.0 Current Medications Medications (Trade) Dose Ordered Sig/Veronika Route PRN Reason Start Time Stop Time Status Last Admin Dose Admin Acetaminophen (Tylenol) 650 mg Q6H PRN ORAL Mild Pain/Temp > 100.5 12/22/17 16:06 01/21/18 16:05 12/23/17 11:53 Acetaminophen/ Hydrocodone Bitart ([place] 5/325) 1 tab Q6H PRN ORAL For severe pain 12/22/17 16:07 12/29/17 16:05 12/24/17 04:40 Ceftriaxone Sodium 1 gm/ Dextrose 55 ml @ 110 mls/hr Q24H IVPB 12/22/17 17:00 12/29/17 16:59 12/23/17 17:12 Hydromorphone HCl (Dilaudid) 0.5 mg Q4H PRN IVP For Pain 9-10 12/23/17 14:45 12/30/17 14:44 Temazepam (Restoril) 15 mg HSPRN PRN ORAL Insomnia 12/23/17 14:45 12/30/17 14:44 Chen Doll MD Dec 24, 2017 12:02
--- NOTE | 2017-12-24 13:44 | Podiatric Progress Note ---
Assessment/Plan Patient Leydi Ramires is a 32 year old female who was admitted on Dec 22, 2017 at 12:50 with Assessment/Plan A/ S/P Extraction of foreign bodies left foot with repair of laceration - doing well P/ Ok to discharge home F/u next week Friday in my office Will send Rx for [employer]co#3 and Keflex through EMR at my office Educated on post op care - elevation, icing, NWB with crutches left foot, keep dressings dry Patient to call or email me if she has any issues Subjective Allergies: Coded Allergies: No Known Allergies (Unverified , 12/22/17) Subjective Patient feels better. Had pain this morning and was controlled with [place] and took pain meds twice since surgery. Still concerned about numbess in 3rd toe. PT has gait trained with crutches. Mother at bedside. Objective Exam Last 24 Hour Vital Signs Date Time Temp Pulse Resp B/P (MAP) Pulse Ox O2 Delivery O2 Flow Rate FiO2 12/24/17 11:12 97.6 12/24/17 09:00 Room Air 12/24/17 08:16 207.7 68 20 98 12/24/17 08:00 98.7 73 20 107/69 (82) 97 98.7 12/24/17 04:00 98.8 68 19 101/66 (78) 99 98.8 12/24/17 00:00 98.6 64 18 108/61 (77) 99 98.6 12/23/17 22:54 61 15 100/62 98 Room Air 12/23/17 22:46 97.6 62 18 112/69 99 Room Air 97.6 12/23/17 22:35 60 14 99/68 100 Room Air 12/23/17 22:30 Room Air 12/23/17 22:30 63 15 109/67 99 Room Air 12/23/17 22:25 208.8 85 20 99 12/23/17 22:20 63 15 109/67 99 Room Air 12/23/17 22:13 98.2 69 20 112/69 98 Room Air 98.2 12/23/17 20:00 99.1 82 16 130/65 (86) 98 99.1 12/23/17 16:03 98.9 91 19 121/77 (92) 99 98.9 Laboratory Tests Test 12/24/17 08:00 White Blood Count 6.7 K/UL (4.8-10.8) Red Blood Count 4.00 M/UL (4.20-5.40) L Hemoglobin 12.7 G/DL (12.0-16.0) Hematocrit 37.0 % (37.0-47.0) Mean Corpuscular Volume 93 FL (80-99) Mean Corpuscular Hemoglobin 31.8 PG (27.0-31.0) H Mean Corpuscular Hemoglobin Concent 34.4 G/DL (32.0-36.0) Red Cell Distribution Width 10.5 % (11.6-14.8) L Platelet Count 222 K/UL (150-450) Mean Platelet Volume 9.0 FL (6.5-10.1) Neutrophils (%) (Auto) 52.8 % (45.0-75.0) Lymphocytes (%) (Auto) 34.5 % (20.0-45.0) Monocytes (%) (Auto) 7.6 % (1.0-10.0) Eosinophils (%) (Auto) 3.8 % (0.0-3.0) H Basophils (%) (Auto) 1.2 % (0.0-2.0) Erythrocyte Sedimentation Rate 30 MM/HR (0-20) H Sodium Level 139 MMOL/L (136-145) Potassium Level 3.9 MMOL/L (3.5-5.1) Chloride Level 103 MMOL/L (98-107) Carbon Dioxide Level 26 MMOL/L (21-32) Anion Gap 10 mmol/L (5-15) Blood Urea Nitrogen 12 mg/dL (7-18) Creatinine 0.6 MG/DL (0.55-1.30) Estimat Glomerular Filtration Rate > 60 mL/min (>60) Glucose Level 92 MG/DL (74-106) Calcium Level 9.0 MG/DL (8.5-10.1) Phosphorus Level 4.2 MG/DL (2.5-4.9) Magnesium Level 2.0 MG/DL (1.8-2.4) Total Bilirubin 0.4 MG/DL (0.2-1.0) Aspartate Amino Transf (AST/SGOT) 14 U/L (15-37) L Alanine Aminotransferase (ALT/SGPT) 17 U/L (12-78) Alkaline Phosphatase 28 U/L (46-116) L C-Reactive Protein, Quantitative 1.4 mg/dL (0.00-0.90) H Total Protein 7.3 G/DL (6.4-8.2) Albumin 3.7 G/DL (3.4-5.0) Globulin 3.6 g/dL Albumin/Globulin Ratio 1.0 (1.0-2.7) Musculoskeletal Musculoskeletal Patient able to plantarflex toes left foot. No gross deformity noted. Neurological Neurological Narrative Sensory numbness left 3rd and 4th toes Dermatological Dermatological Narrative Incision well coapted, Sutures are C/D/I. Minimal bleeding in dressings. Minimal edema noted. Yefri Nichols DPM Dec 24, 2017 13:44
[2017-12-24] MEDS ORDERED: Sterile Water Irrig 1000ml IRRIG ONE (20:30)
[2017-12-24] MEDS ORDERED: LR 1000ml ONE (20:30)
[2017-12-24] MEDS ORDERED: NS Irrig 1000ml ONE (20:30)
--- NOTE | 2017-12-25 12:54 | Discharge Summary ---
Discharge Summary Discharge Summary _ DATE OF ADMISSION: 12/22/2017 DATE OF DISCHARGE: 12/24/2017 CONSULTANTS: Dr. Chen Nichols BRIEF HOSPITAL COURSE: Patient is a 32-year-old white female, who presented to ED with chief complaint of laceration and foreign body on the left foot. The patient was at home with her son in the bathroom. A glass fell and shattered on the floor. Patient apparently stepped on a shattered glass. She complained of third toe numbness and multiple toe tingling. She initially presented to [facility]. X-rays showed foreign bodies however was told deep to be removed. She was then transferred to [facility] for insurance purposes. She was given wound care and pain management. She was seen by a acid remover. Foot x-ray showed at least 6 foreign bodies, presumably glass fragments within the plantar surface of the mid foot, adjacent to the third metatarsal shaft. There was no definite bony destruction or abnormal soft tissue gas. On 2017, she underwent removal of foreign bodies to the left foot and repair of laceration approximately 5 cm in length. She tolerated procedure well and postoperatively she underwent physical therapy. She was given wound care and pain management. Patient aware of nonweightbearing status for 3 weeks and to continue dressing changes at home. She was educated of postop care including elevation, icing, nonweightbearing status with crutches on the left foot and to keep dressings dry. She was eventually discharged home. FINAL DIAGNOSES: Laceration of the left foot status post surgical repair on 12/23/2017 Foreign body to the left foot status post surgical removal under anesthesia on 12/23/2017 DISPOSITION: Patient was discharged home. DISCHARGE MEDICATIONS: Refer to Discharge Medication List. DISCHARGE INSTRUCTIONS: Follow up within a week. Follow-up with Dr. Nichols on . Rx for Tylenol 3 and Keflex. I have been assigned to dictate discharge summary on this account, and I was not involved in the patient's management. Mónica Gould NP Dec 25, 2017 12:54
== END 2017-12-24 14:00 | disposition home or self-care (01) | DRG 909 ==
LOC: 4E 12:50
PROC: 0KCW0ZZ Extirpation of Matter from Left Foot Muscle, Open Approach (ICD-10-PCS; principal; 2017-12-23 15:30)
PROC: 0KQ Muscles, Repair (ICD-10-PCS; principal; 2017-12-23 15:30)
DX: S91.322A Laceration with foreign body, left foot, initial encounter (principal); W25.XXXA Contact with sharp glass, initial encounter; W45.8XXA Other foreign body or object entering through skin, initial encounter; Y92.002 Bathroom of unspecified non-institutional (private) residence as the place of occurrence of the external cause
CPT/HCPCS: 36415; 76001; 80053; 83735; 84100; 84703; 85025; 85651; 86140; A4246; J2250